=== PATIENT | female | born 2000 ===

== ENCOUNTER 2023-05-27 20:58 | Emergency (ER) | payer MEDICAID ==
[~2023-05-27] VITALS: Ht 162.6 cm; Wt 59.3 kg
[2023-05-28 00:09] VITALS: BP 116/63; PULSE 76; RESP 16; TEMP 97.9; O2SAT 98
[2023-05-28] MEDS ORDERED: ZOFR4T PO (00:22)
[2023-05-28] MEDS ORDERED: ONDANSETRON ODT 4 MG TAB PO ONE (00:30)
== END 2023-05-28 00:31 | disposition home or self-care (01) ==
LOC: ER 20:58
DX: R11.0 Nausea (principal); Z79.899 Other long term (current) drug therapy
CPT/HCPCS: 99283; Q0162